=== PATIENT | female | born 1975 ===

== ENCOUNTER 2021-01-24 11:33 | Emergency (ER) | payer SELFPAY ==
[2021-01-24 12:15] VITALS: BP 144/83
[2021-01-24] MEDS ORDERED: SODIUM CHLORIDE 0.9% 1000 ML 1,000 ML IV ONE (14:59)
[2021-01-24] MEDS ORDERED: KETOROLAC 30 MG/1 ML INJ IV ONE (14:59)
[2021-01-24] MEDS ORDERED: dexAMETHasone 20 MG/5 ML VIAL IV ONE (14:59)
[2021-01-24] MEDS ORDERED: diphenhydrAMINE 50 MG/ML VIAL IV ONE (14:59)
[2021-01-24] MEDS ORDERED: METOCLOPRAMIDE 10 MG/2 ML INJ IV ONE (14:59)
--- NOTE | 2021-01-24 15:58 | Emergency Department Report ---
ED General Adult HPI - General Chief complaint: Headache Stated complaint: HEAD PAIN/SOB Time Seen by Provider: 01/24/21 14:55 Source: patient Mode of arrival: Ambulatory Limitations: No Limitations - History of Present Illness Initial comments: 45-year-old -Al[place]ian female patient presents with complaints of headache x4 days. Patient states a history of hypertension and migraines. She states this headache feels like her normal migraine and is bilateral in the frontal portion of her head and behind her eyes. She denies any vision changes, vomiting, numbness/tingling/weakness in her limbs, difficulty with speech/ambulation, confusion, memory loss, neck pain, or head injuries. She states Excedrin is not helping. She states compliance with her antihypertensive medications. Severity scale (0 -10): 8 - Related Data Allergies Allergy/AdvReac Type Severity Reaction Status Date / Time No Known Allergies Allergy Unverified 01/24/21 12:12 ED Review of Systems ROS: Stated complaint: HEAD PAIN/SOB Other details as noted in HPI Constitutional: denies: chills, diaphoresis, fever, malaise, weakness Respiratory: denies: cough, shortness of breath Cardiovascular: denies: chest pain Gastrointestinal: denies: nausea, vomiting Neurological: headache. denies: weakness, numbness, paresthesias, abnormal gait ED Past Medical Hx - Past Medical History Hx Headaches / Migraines: Yes - Surgical History Additional Surgical History: HYAT/ 4 TUBAL LIG/ LEG SURGERY X 7/ C SECTION ED Physical Exam - General Limitations: No Limitations General appearance: alert, in no apparent distress, obese - Head Head exam: Present: atraumatic, normocephalic - Eye Eye exam: Present: normal appearance, PERRL. Absent: scleral icterus - Neck Neck exam: Present: normal inspection - Respiratory Respiratory exam: Absent: respiratory distress - Cardiovascular Cardiovascular Exam: Present: regular rate - Neurological Exam Neurological exam: Present: alert, oriented X3, CN II-XII intact, normal gait. Absent: motor sensory deficit - Expanded Neurological Exam Expanded Motor strength exam: RUE: 4, LUE: 4, RLE: 4, LLE: 4 - Psychiatric Psychiatric exam: Present: normal affect, normal mood - Skin Skin exam: Present: warm, dry, intact, normal color. Absent: rash ED Course Vital Signs 01/24/21 12:14 Temperature 98.8 F Pulse Rate 89 Respiratory 18 Rate Blood Pressure 144/83 O2 Sat by Pulse 99 Oximetry ED Medical Decision Making - Medical Decision Making 45-year-old -Algerian female patient presents with complaints of headache x4 days. Patient states a history of hypertension and migraines. She states this headache feels like her normal migraine and is bilateral in the frontal portion of her head and behind her eyes. She denies any vision changes, vomiting, numbness/tingling/weakness in her limbs, difficulty with speech/ambulation, confusion, memory loss, neck pain, or head injuries. She states Excedrin is not helping. She states compliance with her antihypertensive medications. Patient given migraine cocktail. She states her headache is completely resolved. Her neuro exam is normal. Patient is well-appearing and stable for discharge home. Recommend follow-up with PCP. Strict return precautions were discussed in detail patient verbalizes understanding. Critical care attestation.: If time is entered above; I have spent that time in minutes in the direct care of this critically ill patient, excluding procedure time. ED Disposition Clinical Impression: Headache, classical migraine Qualifiers: Status migrainosus presence: without status migrainosus Intractability: not intractable Qualified Code(s): G43.109 - Migraine with aura, not intractable, without status migrainosus Disposition: 01 HOME / SELF CARE / HOMELESS Is pt being admited?: No Condition: Stable Instructions: Migraine Headache Referrals: PRIMARY CARE, [Referring] - 3-5 Days Forms: Work/School Release Form(ED)
== END 2021-01-24 16:55 | disposition home or self-care (01) ==
LOC: ED 11:33
DX: G43.909 Migraine, unspecified, not intractable, without status migrainosus (principal)
CPT/HCPCS: 96361; 96374; 96375; 99282; J1100; J1200; J1885; J2765; J7030

== ENCOUNTER 2022-02-09 09:03 | Emergency (ER) | payer OTHER ==
[2022-02-09 09:18] VITALS: BP 146/98
[2022-02-09] MEDS ORDERED: ONDANSETRON 4 MG/2 ML INJ IV ONE (10:06)
[2022-02-09] MEDS ORDERED: SODIUM CHLORIDE 0.9% 1000 ML 1,000 ML IV ONE (10:06)
[2022-02-09 10:08] LABS: Bacteria,Urine 1+ /HPF (Negative); Mucus,Urine 3+ /HPF
[2022-02-09 10:16] LABS: Color,Urine Yellow (Yellow); HCG Qualitative,Urine Negative (Negative)
--- NOTE | 2022-02-09 10:19 | Emergency Department Report ---
<NETO GAMEZ A - Last Filed: 02/09/22 14:22> ED Abdominal Pain HPI - General Chief Complaint: Abdominal Pain Stated Complaint: LOWER STOMACH PAIN .THROWING UP Time Seen by Provider: 02/09/22 10:07 Source: patient Mode of arrival: Ambulatory Limitations: No Limitations - History of Present Illness Initial Comments: 46 YO COMES TO ER CO B LOWER QUAD ABD PAIN AND NAUSEA. NO VOMITING. NO DIARRHEA. NO VAG D/C. NO VAG BLEEDING. NO FEVER. NO CHILLS. AMBULATORY AND NAD ON ARRIVAL TO ER. MD Complaint: abdominal pain -: Gradual, days(s) Radiation: none Severity scale (0 -10): 5 Consistency: constant Improves With: nothing Worsens With: nothing Associated Symptoms: denies other symptoms, nausea. denies: vomiting, diarrhea, fever, chills, constipation, dysuria, hematemesis, hematochezia, melena, hematuria, anorexia, syncope - Related Data Previous Rx's Medication Instructions Recorded Last Taken Type Ondansetron [Zofran Odt] 4 mg PO Q8HR PRN #10 tab.rapdis 02/09/22 Unknown Rx Sulfamethoxazole/Trimethoprim 1 each PO BID #10 tablet 02/09/22 Unknown Rx [Bactrim DS TAB] Allergies Allergy/AdvReac Type Severity Reaction Status Date / Time No Known Allergies Allergy Verified 02/09/22 09:19 ED Review of Systems Comment: All other systems reviewed and negative ED Past Medical Hx - Past Medical History Previous Medical History?: Yes Hx Headaches / Migraines: Yes Additional medical history: DIVERTICULITIS - Surgical History Past Surgical History?: Yes Additional Surgical History: HYAT/ 4 TUBAL LIG/ LEG SURGERY X 7/ C SECTION - Family History Family history: no significant - Social History Smoking Status: Never Smoker Substance Use Type: None - Medications Home Medications: Home Medications Medication Instructions Recorded Confirmed Last Taken Type Ondansetron [Zofran Odt] 4 mg PO Q8HR PRN #10 tab.rapdis 02/09/22 Unknown Rx Sulfamethoxazole/Trimethoprim 1 each PO BID #10 tablet 02/09/22 Unknown Rx [Bactrim DS TAB] ED Physical Exam - General Limitations: No Limitations General appearance: alert, in no apparent distress - Head Head exam: Present: atraumatic, normocephalic - Eye Eye exam: Present: normal appearance - ENT ENT exam: Present: mucous membranes moist - Neck Neck exam: Present: normal inspection - Respiratory Respiratory exam: Present: normal lung sounds bilaterally. Absent: respiratory distress - Cardiovascular Cardiovascular Exam: Present: regular rate, normal rhythm. Absent: systolic murmur, diastolic murmur, rubs, gallop - GI/Abdominal GI/Abdominal exam: Present: soft, normal bowel sounds - Extremities Exam Extremities exam: Present: normal inspection - Back Exam Back exam: Present: normal inspection - Neurological Exam Neurological exam: Present: alert, oriented X3 - Psychiatric Psychiatric exam: Present: normal affect, normal mood - Skin Skin exam: Present: warm, dry, intact, normal color. Absent: rash ED Course - Reevaluation(s) Reevaluation #1: 02/09/22 LABS REPEATED APPEAR HEME DILUTED ED Medical Decision Making - Lab Data Result diagrams: 02/09/22 12:58 02/09/22 12:58 - Medical Decision Making Lab Results 02/09/22 02/09/22 02/09/22 Range/Units 09:41 10:25 10:25 WBC 3.0 L (4.5-11.0) K/mm3 RBC 1.26 L (3.65-5.03) M/mm3 Hgb 4.0 L* (10.1-14.3) gm/dl Hct 12.0 L* (30.3-42.9) % MCV 96 (79-97) fl MCH 32 (28-32) pg MCHC 33 (30-34) % RDW 14.1 (13.2-15.2) % Plt Count 76 L (140-440) K/mm3 Add Manual Diff Complete Total Counted 100 Seg Neuts % (Manual) 78.0 H (40.0-70.0) % Band Neutrophils % 0 % Lymphocytes % (Manual) 17.0 (13.4-35.0) % Reactive Lymphs % (Man) 0 % Monocytes % (Manual) 5.0 (0.0-7.3) % Eosinophils % (Manual) 0 (0.0-4.3) % Basophils % (Manual) 0 (0.0-1.8) % Metamyelocytes % 0 % Myelocytes % 0 % Promyelocytes % 0 % Blast Cells % 0 % Nucleated RBC % Not Reportable Seg Neutrophils # Man 2.3 (1.8-7.7) K/mm3 Band Neutrophils # 0.0 K/mm3 Lymphocytes # (Manual) 0.5 L (1.2-5.4) K/mm3 Abs React Lymphs (Man) 0.0 K/mm3 Monocytes # (Manual) 0.2 (0.0-0.8) K/mm3 Eosinophils # (Manual) 0.0 (0.0-0.4) K/mm3 Basophils # (Manual) 0.0 (0.0-0.1) K/mm3 Metamyelocytes # 0.0 K/mm3 Myelocytes # 0.0 K/mm3 Promyelocytes # 0.0 K/mm3 Blast Cells # 0.0 K/mm3 WBC Morphology Not Reportable Hypersegmented Neuts Not Reportable Hyposegmented Neuts Not Reportable Hypogranular Neuts Not Reportable Smudge Cells Not Reportable Toxic Granulation Not Reportable Toxic Vacuolation Not Reportable Dohle Bodies Not Reportable Pelger-Huet Anomaly Not Reportable Noni Rods Not Reportable Platelet Estimate Consistent w auto Clumped Platelets Not Reportable Plt Clumps, EDTA Not Reportable Large Platelets Few Giant Platelets Not Reportable Platelet Satelliting Not Reportable Plt Morphology Comment Not Reportable RBC Morphology Not Reportable Dimorphic RBCs Not Reportable Polychromasia Not Reportable Hypochromasia Not Reportable Poikilocytosis Not Reportable Anisocytosis Not Reportable Microcytosis Not Reportable Macrocytosis Not Reportable Spherocytes Not Reportable Pappenheimer Bodies Not Reportable Sickle Cells Not Reportable Target Cells Few Tear Drop Cells 1+ Ovalocytes Not Reportable Helmet Cells Not Reportable Granados-Magna Bodies Not Reportable [place] Rings Not Reportable [place] Cells Not Reportable Bite Cells Not Reportable Crenated Cell Not Reportable Elliptocytes Not Reportable Acanthocytes (Spur) Not Reportable Rouleaux Not Reportable Hemoglobin C Crystals Not Reportable Schistocytes Not Reportable Malaria parasites Not Reportable Jack Bodies Not Reportable Hem Pathologist Commnt No Sodium TNR Potassium TNR Chloride TNR Carbon Dioxide TNR Anion Gap TNR BUN TNR Creatinine TNR Estimated GFR TNR BUN/Creatinine Ratio TNR Glucose TNR Calcium TNR Total Bilirubin TNR AST TNR ALT TNR Alkaline Phosphatase TNR Total Protein TNR Albumin TNR Albumin/Globulin Ratio TNR Lipase Urine Color Yellow (Yellow) Urine Turbidity Slightly cloudy (Clear) Specific [place] (Man) 1.015 (1.003-1.030) Ur Protein (Man) 1+ (Negative) mg/dL Ur Ketones (Man) Negative (Negative) Ur Nitrite (Man) Negative (Negative) Ur Reducing Substances Not Reportable Urine Bilirubin (Man) Negative (Negative) Urine Ictotest Not Reportable Leukocyte Esterase (Man) Trace (Negative) Urine WBC (Auto) 15.0 H (0.0-6.0) /HPF Urine RBC (Auto) 4.0 (0.0-6.0) /HPF U Epithel Cells (Auto) 28.0 H (0-13.0) /HPF Urine Bacteria (Auto) 1+ (Negative) /HPF Urine RBC (Manual) Negative (Negative) Urine Mucus 3+ /HPF Urine HCG, Qual Negative (Negative) 02/09/22 02/09/22 Range/Units 10:25 12:58 WBC 9.9 (4.5-11.0) K/mm3 RBC 4.12 (3.65-5.03) M/mm3 Hgb 12.6 D (10.1-14.3) gm/dl Hct 38.2 D (30.3-42.9) % MCV 93 (79-97) fl MCH 31 (28-32) pg MCHC 33 (30-34) % RDW 13.8 (13.2-15.2) % Plt Count 243 D (140-440) K/mm3 Add Manual Diff Total Counted Seg Neuts % (Manual) (40.0-70.0) % Band Neutrophils % % Lymphocytes % (Manual) (13.4-35.0) % Reactive Lymphs % (Man) % Monocytes % (Manual) (0.0-7.3) % Eosinophils % (Manual) (0.0-4.3) % Basophils % (Manual) (0.0-1.8) % Metamyelocytes % % Myelocytes % % Promyelocytes % % Blast Cells % % Nucleated RBC % Seg Neutrophils # Man (1.8-7.7) K/mm3 Band Neutrophils # K/mm3 Lymphocytes # (Manual) (1.2-5.4) K/mm3 Abs React Lymphs (Man) K/mm3 Monocytes # (Manual) (0.0-0.8) K/mm3 Eosinophils # (Manual) (0.0-0.4) K/mm3 Basophils # (Manual) (0.0-0.1) K/mm3 Metamyelocytes # K/mm3 Myelocytes # K/mm3 Promyelocytes # K/mm3 Blast Cells # K/mm3 WBC Morphology Hypersegmented Neuts Hyposegmented Neuts Hypogranular Neuts Smudge Cells Toxic Granulation Toxic Vacuolation Dohle Bodies Pelger-Huet Anomaly Noni Rods Platelet Estimate Clumped Platelets Plt Clumps, EDTA Large Platelets Giant Platelets Platelet Satelliting Plt Morphology Comment RBC Morphology Dimorphic RBCs Polychromasia Hypochromasia Poikilocytosis Anisocytosis Microcytosis Macrocytosis Spherocytes Pappenheimer Bodies Sickle Cells Target Cells Tear Drop Cells Ovalocytes Helmet Cells Granados-Magna Bodies [place] Rings [place] Cells Bite Cells Crenated Cell Elliptocytes Acanthocytes (Spur) Rouleaux Hemoglobin C Crystals Schistocytes Malaria parasites Jack Bodies Hem Pathologist Commnt Sodium Potassium Chloride Carbon Dioxide Anion Gap BUN Creatinine Estimated GFR BUN/Creatinine Ratio Glucose Calcium Total Bilirubin AST ALT Alkaline Phosphatase Total Protein Albumin Albumin/Globulin Ratio Lipase TNR Urine Color (Yellow) Urine Turbidity (Clear) Specific [place] (Man) (1.003-1.030) Ur Protein (Man) (Negative) mg/dL Ur Ketones (Man) (Negative) Ur Nitrite (Man) (Negative) Ur Reducing Substances Urine Bilirubin (Man) (Negative) Urine Ictotest Leukocyte Esterase (Man) (Negative) Urine WBC (Auto) (0.0-6.0) /HPF Urine RBC (Auto) (0.0-6.0) /HPF U Epithel Cells (Auto) (0-13.0) /HPF Urine Bacteria (Auto) (Negative) /HPF Urine RBC (Manual) (Negative) Urine Mucus /HPF Urine HCG, Qual (Negative) Vital Signs 02/09/22 09:15 Temperature 99.2 F Pulse Rate 86 Respiratory 16 Rate Blood Pressure 146/98 [Right] O2 Sat by Pulse 100 Oximetry HGG NEG LABS NOTED UA NOTED 1LNS/ZOFRAN/TORADOL AND ROCEPHIN IN ER DC EXAM PT TAKING PO AND NAD IN ER 5 HOURS WITH NO N/V URINE CULTURE PENDING HOME ON BACTRIM DC HOME WITH DC PLAN OF CAR INCLUDING DIET/MEDS/ACTIVITY AND FOLLOW UP SHE VERBALIZES UNDERSTANDING. - Differential Diagnosis RO PREG/UTI ED Disposition Clinical Impression: UTI (urinary tract infection) Qualifiers: Urinary tract infection type: site unspecified Hematuria presence: without hematuria Qualified Code(s): N39.0 - Urinary tract infection, site not specified Disposition: 01 HOME / SELF CARE / HOMELESS Is pt being admited?: No Does the pt Need Aspirin: No Condition: Stable Instructions: Urinary Tract Infection, Adult, Abdominal Pain (ED) Additional Instructions: med as ordered today follow up with pcp or ob next week after antibiotics referral below motrin or tylenol for pain stay well hydrated with water Prescriptions: Sulfamethoxazole/Trimethoprim [Bactrim DS TAB] 1 each PO BID #10 tablet Ondansetron [Zofran Odt] 4 mg PO Q8HR PRN #10 tab.rapdis PRN Reason: Vomiting Referrals: SANTOSH GUPTA MD [Staff Physician] - 3-5 Days FITO CAPUTO MD [Staff Physician] - 3-5 Days Forms: Work/School Release Form(ED) Time of Disposition: 13:43 <ANDREA LOPEZ - Last Filed: 02/10/22 17:53> ED Review of Systems ROS: Stated complaint: LOWER STOMACH PAIN .THROWING UP Other details as noted in HPI ED Course Vital Signs 02/09/22 09:15 Temperature 99.2 F Pulse Rate 86 Respiratory 16 Rate Blood Pressure 146/98 [Right] O2 Sat by Pulse 100 Oximetry ED Medical Decision Making - Lab Data Result diagrams: 02/09/22 12:58 02/09/22 12:58 - Medical Decision Making Chart reviewed. Initial CBC revealed significant anemia with a hemoglobin of 4. This was repeated several hours later with improvement in H&H. Initial value thought to be due to lab error given that patient's H&H improved without blood transfusion. Critical care attestation.: If time is entered above; I have spent that time in minutes in the direct care of this critically ill patient, excluding procedure time.
[2022-02-09] MEDS ORDERED: cefTRIAXone/NS 1 GM/50 ML 1 GM/50 ML BAG IV ONE (10:36)
[2022-02-09] MEDS ORDERED: KETOROLAC 30 MG/1 ML INJ IV ONE (10:43)
[2022-02-09 11:29] LABS: Mean Corpuscular HGB Conc 33 % (30-34); Mean Corpuscular Volume 96 fl (79-97); Red Blood Count 1.26 M/mm3 (3.65-5.03); Red Cell Distribution Width 14.1 % (13.2-15.2)
[2022-02-09 11:57] LABS: Platelet Count 76 K/mm3 (140-440)
[2022-02-09 12:43] LABS: Blood Urea Nitrogen TNR mg/dL (7-17)
[2022-02-09 12:44] LABS: Alanine Aminotransferase TNR units/L (7-56); BUN/Creatinine Ratio TNR; Calcium TNR mg/dL (8.4-10.2)
[2022-02-09 12:45] LABS: Albumin TNR g/dL (3.9-5); Hemolysis Index TNR
[2022-02-09 13:13] LABS: Basophils % (Manual) 0 % (0.0-1.8); Eosinophils % (Manual) 0 % (0.0-4.3); Large Platelets Few; Platelet Estimate Consistent w Auto; Target Cells Few; Tear Drop Cells 1+; Total Cells Counted 100
[2022-02-09 13:32] LABS: Hematocrit 38.2 % (30.3-42.9); Hemoglobin 12.6 gm/dl (10.1-14.3); Mean Corpuscular HGB Conc 33 % (30-34); Mean Corpuscular Volume 93 fl (79-97); Platelet Count 243 K/mm3 (140-440); Red Blood Count 4.12 M/mm3 (3.65-5.03); Red Cell Distribution Width 13.8 % (13.2-15.2)
[2022-02-09 13:48] LABS: Alanine Aminotransferase 8 units/L (7-56); Albumin 4.1 g/dL (3.9-5); Blood Urea Nitrogen 11 mg/dL (7-17); Calcium 9.1 mg/dL (8.4-10.2); Hemolysis Index 2
[2022-02-09 13:49] LABS: Alanine Aminotransferase 7 units/L (7-56); Albumin 4.1 g/dL (3.9-5); Blood Urea Nitrogen 11 mg/dL (7-17); Hemolysis Index 7
[2022-02-09 13:53] LABS: BUN/Creatinine Ratio 16
[2022-02-09 13:54] LABS: BUN/Creatinine Ratio 16
== END 2022-02-09 14:58 | disposition home or self-care (01) ==
LOC: ED 09:03
DX: N39.0 Urinary tract infection, site not specified (principal)
CPT/HCPCS: 36415; 80053; 81001; 81025; 83690; 85007; 85025; 85027; 86850; 86900; 86901; 87086; 96361; 96365; 96375; 99283; J0696; J1885; J2405; J7030

== ENCOUNTER 2022-02-12 01:54 | Emergency (ER) | payer MEDICARE, OTHER | END 2022-02-12 05:49 | disposition left against medical advice (07) | LOC: ED 01:54 | DX: R07.89 Other chest pain (principal); Z53.21 Procedure and treatment not carried out due to patient leaving prior to being seen by health care provider ==